=== PATIENT | male | born 1965 | race Caucasian/White ===

== ENCOUNTER 2016-11-18 12:34 | Emergency (ER) | payer OTHER ==
[~2016-11-18] VITALS: Ht 175.3 cm; Wt 74.8 kg
[~2016-11-18 12:34] MED LIST: IBUPROFEN600 MG PO
[2016-11-18] MEDS ORDERED: ALEVE220 MG PO (12:42)
== END 2016-11-18 12:47 | disposition home or self-care (01) ==
LOC: ED 12:34
DX: Z00.8 Encounter for other general examination (principal)

== ENCOUNTER 2019-03-15 12:27 | Emergency (ER) | payer BC ==
[~2019-03-15] VITALS: Ht 175.3 cm; Wt 86.2 kg
[~2019-03-15 12:27] MED LIST changes: +ALEVE220 MG PO
--- OUTSIDE RECORDS SUMMARY | 2019-03-15 12:30 | XMS ---
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 Jenny has no Care Guidelines for this patient. Jana VISIT COUNT (12 MO.) 1 [facility] TOTAL 1 NOTE: Visits indicate total known visits. ED/C VISIT TRACKING (12 MO.) 03/15/2019 12:27 [facility] [place] TYPE: Emergency COMPLAINT: - DIZZYNESS, HEADACHE INPATIENT VISIT TRACKING (12 MO.) No inpatient visits to display in this time frame [email or web address]
[2019-03-15] MEDS ORDERED: LEVOCETIRIZINE D5 MG PO (14:40)
[2019-03-15] MEDS ORDERED: BUDESONIDE8.43 ML (14:40)
[2019-03-15] MEDS ORDERED: HYDROXYZINE PAM25 MG PO (14:40)
[2019-03-15] MEDS ORDERED: MECLIZINE HCL25 MG PO (16:01)
== END 2019-03-15 16:13 | disposition home or self-care (01) ==
LOC: ED 12:27
DX: R42 Dizziness and giddiness (principal); H91.91 Unspecified hearing loss, right ear; F17.200 Nicotine dependence, unspecified, uncomplicated; Z79.899 Other long term (current) drug therapy
CPT/HCPCS: 70450; 80053; 85025; 96374; 96376; 99284-25; J2405; J7030

== ENCOUNTER 2019-05-20 13:03 | Day surgery (SDC) | payer OTHER ==
[~2019-05-20] VITALS: Ht 175.3 cm; Wt 86.2 kg
[~2019-05-20 13:03] MED LIST changes: +BUDESONIDE8.43 ML; +HYDROXYZINE PAM25 MG PO; +LEVOCETIRIZINE D5 MG PO; +MECLIZINE HCL25 MG PO
--- NOTE | 2019-05-20 15:18 | NUR ---
05/20/19 1518 Whitney Whitney 1511 PATIENT ARRIVES TO PACU ASLEEP, AWAKENS WITH VERBAL STIMULI. RESP EVEN AND UNLABORED, NC AT 2 LITERS. 1515 PATIENT SLEEPING. AT BEDSIDE. PATIENT AWAKENS WITH VERBAL STIMULI. NC OFF. RESP EVEN AND UNLABORED, SNORING WHEN ASLEEP.
--- NOTE | 2019-05-21 18:30 | OR ---
[facility] [address], [place] [address] Signed DATE OF OPERATION: 05/20/2019 SURGEON: Jerzy Hackett MD PREOPERATIVE DIAGNOSIS: Episodic bright red rectal bleeding (painless). POSTOPERATIVE DIAGNOSIS: Polyps x3 (small). PROCEDURE: Total colonoscopy to cecum with cold snare polypectomy x1 and cold morcellation polypectomy x2. ANESTHESIA: Intravenous sedation, fentanyl 100 mcg, Versed 5 mg. INDICATION: This 53-year-old white man is a patient of MARIA G Cortes, and has had episodes of bright red rectal bleeding without associated pain. He is not known to have hemorrhoids. He has no family history of colon cancer. He is admitted at this time to undergo colonoscopy. He understands the risks of bleeding, infection, and perforation. FINDINGS: The prep was excellent. Complete colonoscopy was undertaken to the cecum without question. He had a small sessile polyp in the mid ascending colon, which was excised with cold morcellation technique and two other small polyps at the rectosigmoid, one excised with cold snare technique, the other with cold morcellation technique. There was no sign of colitis, diverticulosis or internal hemorrhoids so far as could be told. DESCRIPTION OF PROCEDURE: The patient was brought to the endoscopy suite and placed in lateral decubitus position, given intravenous sedation to the point of slurred speech and nystagmus. Digital rectal examination was normal. An Olympus video colonoscope was passed in the rectum and manipulated throughout the colon ultimately intubating the cecum itself. The scope was carefully withdrawn. In the mid ascending colon, was a small sessile polyp. It is unclear if this was adenomatous, but its mucosal surface appeared to be so. This was excised with a cold morcellation polypectomy device. The scope was further withdrawn and there were no Electronically Signed By: JERZY HACKETT MD 05/21/19 1830 PATIENT NAME: LISANDRA BROWN OPERATIVE REPORT DATE OF : 67 REPORT #: [id number] PHYSICIAN: JERZY HACKETT MD PCP: NAHUN RIDDLE REPORT IS CONFIDENTIAL AND NOT TO BE RELEASED WITHOUT AUTHORIZATION [facility] [address], [place] [address] Signed other findings until the rectosigmoid where two small polyps not far from each other were noted. One was excised with cold snare technique, the other with cold morcellation technique. They were retrieved and passed for Pathology. The scope was further withdrawn. Retroflexed view in the rectum showed no sign of hemorrhoids or other issue. Scope was removed. The patient was taken to recovery room in good condition. CONCLUDING DIAGNOSIS: Polyps x3. No clear reason for bleeding. I would recommend high-fiber diet. Recurrent bleeding could be re-evaluated in consideration of possible hemorrhoidal disease. MD JUAN ANTONIO Nazario/BALWINDER /[id number] cc: MARIA G Cortes Copies: ~ Electronically Signed By: JERZY HACKETT MD 05/21/19 1830 PATIENT NAME: LISANDRA BROWN AVRIL OPERATIVE REPORT DATE OF : 67 REPORT #: [id number] PHYSICIAN: JERZY HACKETT MD PCP: NAHUN RIDDLE REPORT IS CONFIDENTIAL AND NOT TO BE RELEASED WITHOUT AUTHORIZATION
--- NOTE | 2019-05-24 17:41 | PATH ---
[facility] [address], [place] [address] Signed SPECIMEN(S): A ASCENDING POLYP SPECIMEN(S): B RECTOSIGMOID POLYP SPECIMEN(S): C RECTOSIGMOID POLYP SPECIMEN SOURCE: A. ASCENDING POLYP B. RECTOSIGMOID POLYP C. RECTOSIGMOID POLYP CLINICAL HISTORY: Rectal bleeding. Post op: Polyps x 3. MICROSCOPIC DESCRIPTION: Histologic sections of all submitted blocks are examined by light microscopy. These findings, together with the gross examination, support the pathologic diagnosis. FINAL PATHOLOGIC DIAGNOSIS: A. Mucosa, ascending colon, biopsy: - No microscopic pathologic diagnosis (Polyp, clinical. See comment). B. Mucosa, rectosigmoid colon, biopsy: - Hyperplastic polyp. C. Mucosa, rectosigmoid colon, biopsy: - Hyperplastic polyp. COMMENT: A Multiple levels over three slides are examined. No hyperplastic or adenomatous change is seen. LJA:cml:C2NR GROSS DESCRIPTION: Three specimens are received in three containers, labeled "TV." A. The specimen, labeled "TV, #1" and "ascending/right polypectomy" on the requisition, is received in formalin and consists of a 0.3 cm, soft moscoso tissue fragment that is submitted in toto in cassette (A1). B. The specimen, labeled "TV, #2" and "sigmoid, rectum, polypectomy on the requisition", is received in formalin and consists of a 0.4 x 0.3 x 0.3 cm, soft moscoso, smooth polypoid portion of tissue that is submitted in toto in cassette (B1). C. The specimen, labeled "TV, #3" and "sigmoid, rectum, polyp #2" on the requisition, is received in formalin and consists of a 0.3 x 0.2 x 0.2 cm, soft PATIENT NAME: LISANDRA BROWN PATHOLOGY DATE OF : 67 REPORT #: [id number] PHYSICIAN: KEVIN PATHOLOGY PCP: NAHUN RIDDLE REPORT IS CONFIDENTIAL AND NOT TO BE RELEASED WITHOUT AUTHORIZATION [facility] [address], [place] [address] Signed moscoso, smooth polypoid portion of tissue that is submitted in toto in cassette (C1). SS (under the direct supervision of a pathologist) The Gross Description was prepared using a voice recognition system. The report was reviewed for accuracy; however, sound-alike word errors, addition and/or deletions may occur. If there is any question about this report, please contact Client Services. PERFORMING LABORATORY: The technical component was performed by [facility], [address] [place] [address] (Stonework Tracer: Ronit Moctezuma MD; CLIA# [id number]). [facility] [address] [address] (CLIA# [id number]). Diagnostician: Solis Kathleen MD Pathologist Electronically Signed 05/24/2019 Copies: ~ PATIENT NAME: LISANDRA BROWN PATHOLOGY DATE OF : 67 REPORT #: [id number] PHYSICIAN: KEVIN PANTOJA PCP: NAHUN RIDDLE REPORT IS CONFIDENTIAL AND NOT TO BE RELEASED WITHOUT AUTHORIZATION
== END 2019-05-20 15:50 | disposition home or self-care (01) ==
LOC: OPS 13:03 → DS 14:00 → OPS 14:00 → DS 14:30 → OPS 15:50
PROVIDERS: Surgery
PROC: 0DBN8ZZ Excision of Sigmoid Colon, Via Natural or Artificial Opening Endoscopic (ICD-10-PCS; 2019-05-20)
PROC: 0DBK8ZZ Excision of Ascending Colon, Via Natural or Artificial Opening Endoscopic (ICD-10-PCS; principal; 2019-05-20 14:00)
DX: K63.5 Polyp of colon (principal); F17.210 Nicotine dependence, cigarettes, uncomplicated; I10 Essential (primary) hypertension; G47.30 Sleep apnea, unspecified; Z79.899 Other long term (current) drug therapy
CPT/HCPCS: 99153; G0500; J2250; J3010; J7121

== ENCOUNTER 2019-05-28 19:34 | Emergency (ER) | payer OTHER ==
[~2019-05-28] VITALS: Ht 175.3 cm; Wt 88.5 kg
[2019-05-28] MEDS ORDERED: TYLENOL WITH C1 EACH PO (20:25)
== END 2019-05-28 20:30 | disposition home or self-care (01) ==
LOC: ED 19:34
DX: S92.524A Nondisplaced fracture of middle phalanx of right lesser toe(s), initial encounter for closed fracture (principal); S92.534A Nondisplaced fracture of distal phalanx of right lesser toe(s), initial encounter for closed fracture; W22.8XXA Striking against or struck by other objects, initial encounter
CPT/HCPCS: 73660; 99283-25

== ENCOUNTER 2019-06-23 22:34 | Emergency (ER) | payer OTHER ==
[~2019-06-23] VITALS: Ht 175.3 cm; Wt 86.2 kg
[~2019-06-23 22:34] MED LIST changes: +TYLENOL WITH C1 EACH PO
--- OUTSIDE RECORDS SUMMARY | 2019-06-23 22:38 | XMS ---
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 Care History Medical/Surgical 03/16/2019 [facility] - PATIENT HAS AN APT WITH PCP NAHUN RIDDLE- 03/22/19 @ 3:00PM - Patient is currently established with [facility]. If patient is seen in the ED during business hours. Please contact CHWs at [facility]. Care Recommendation: If this patient has had 5 or more Emergency Department visits in the last 12 months.\T\nbsp; Patient will require education on the scope and purpose of the ED as an acute care provider not a Primary Care Provider and should not be utilized for chronic conditions.\T\nbsp; These are guidelines and the provider should exercise clinical judgment when providing care. E.D. VISIT COUNT (12 MO.) 3 [facility] TOTAL 3 NOTE: Visits indicate total known visits. ED/UCC VISIT TRACKING (12 MO.) 06/23/2019 22:35 [facility] [place] TYPE: Emergency COMPLAINT: - LOWER RIGHT SIDE PAIN 05/28/2019 19:36 [facility] [place] TYPE: Emergency COMPLAINT: - POSS BROKEN TOE DIAGNOSES: - Striking against or struck by other objects, init encntr - Nondisp fx of middle phalanx of right lesser toe(s), init - Nondisp fx of distal phalanx of right lesser toe(s), init 03/15/2019 12:27 [facility] [place] TYPE: Emergency COMPLAINT: - DIZZYNESS, HEADACHE DIAGNOSES: - Unspecified hearing loss, right ear - Dizziness and giddiness - Nicotine dependence, unspecified, uncomplicated - Other superintendent nonselling (current) drug therapy INPATIENT VISIT TRACKING (12 MO.) No inpatient visits to display in this time frame [email or web address]
[2019-06-23] MEDS ORDERED: HYDROCHLOROTHIA25 MG PO (23:17)
== END 2019-06-24 02:20 | disposition home or self-care (01) ==
LOC: ED 22:34
DX: R10.31 Right lower quadrant pain (principal); F17.200 Nicotine dependence, unspecified, uncomplicated; Z79.899 Other long term (current) drug therapy
CPT/HCPCS: 74177; 80053; 81001; 85025; 96361; 99284-25; J1170; J2405; J7030; Q9967

== ENCOUNTER 2019-06-29 09:10 | Emergency (ER) | payer OTHER ==
[~2019-06-29] VITALS: Ht 175.3 cm; Wt 86.2 kg
[~2019-06-29 09:10] MED LIST changes: +HYDROCHLOROTHIA25 MG PO
--- OUTSIDE RECORDS SUMMARY | 2019-06-29 09:14 | XMS ---
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 Care History Medical/Surgical 03/16/2019 [facility] - PATIENT HAS AN APT WITH PCP NAHUN RIDDLE- 03/22/19 @ 3:00PM - Patient is currently established with [facility]. If patient is seen in the ED during business hours. Please contact CHWs at [facility]. Care Recommendation: If this patient has had [...] providing care. E.D. VISIT COUNT (12 MO.) 4 [facility] TOTAL 4 NOTE: Visits indicate total known visits. ED/UCC VISIT TRACKING (12 MO.) 06/29/2019 09:11 [facility] [place] TYPE: Emergency COMPLAINT: - HOT/COLD CHILLS, ACHES, TOOTH PAIN 06/23/2019 22:35 [facility] [place] TYPE: Emergency COMPLAINT: - LOWER RIGHT SIDE PAIN DIAGNOSES: - Right lower quadrant pain - Other buttermaker continuous churn (current) drug therapy - Nicotine dependence, unspecified, uncomplicated 05/28/2019 19:36 [facility] [place] TYPE: Emergency [...] - Nicotine dependence, unspecified, uncomplicated - Other buttermaker continuous churn (current) drug therapy INPATIENT VISIT TRACKING (12 MO.) No inpatient visits to display in this time frame [email or web address]
[2019-06-29] MEDS ORDERED: IBUPROFEN800 MG PO (09:22)
== END 2019-06-29 09:25 | disposition home or self-care (01) ==
LOC: ED 09:10
DX: K08.89 Other specified disorders of teeth and supporting structures (principal)

== ENCOUNTER 2019-07-12 09:43 | Emergency (ER) | payer OTHER ==
[~2019-07-12] VITALS: Ht 175.3 cm; Wt 86.2 kg
[~2019-07-12 09:43] MED LIST changes: +IBUPROFEN800 MG PO
--- OUTSIDE RECORDS SUMMARY | 2019-07-12 09:46 | XMS ---
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 Care History Medical/Surgical 03/16/2019 [facility] - PATIENT HAS AN APT WITH PCP NAHUN RIDDLE- 03/22/19 @ 3:00PM - Patient is currently established with [facility]. If patient is seen in the ED during business hours. Please contact CHWs at [facility]. Care Recommendation: If this patient has [...] providing care. E.D. VISIT COUNT (12 [address] [facility] TOTAL 5 NOTE: Visits indicate total known visits. ED/UCC VISIT TRACKING (12 MO.) 07/12/2019 09:44 [facility] [place] TYPE: Emergency COMPLAINT: - SOB, CHILLS 06/29/2019 09:11 [facility] [place] TYPE: Emergency COMPLAINT: - HOT/COLD CHILLS, ACHES, TOOTH PAIN DIAGNOSES: - Other specified disorders of teeth and supporting structures 06/23/2019 22:35 [facility] [place] TYPE: Emergency COMPLAINT: - LOWER RIGHT SIDE PAIN DIAGNOSES: - Right lower quadrant pain - Other fci (current) drug therapy - Nicotine dependence, unspecified, uncomplicated 05/28/2019 19:36 [facility] [place] TYPE: Emergency COMPLAINT: - POSS BROKEN TOE DIAGNOSES: - Striking against or struck by other objects, initial encounte - Nondisplaced fracture of middle phalanx of right lesser toe(s - Nondisplaced fracture of distal phalanx of right lesser toe(s 03/15/2019 12:27 [facility] [place] TYPE: Emergency COMPLAINT: - DIZZYNESS, HEADACHE DIAGNOSES: - Unspecified hearing loss, right ear - Dizziness and giddiness - Nicotine dependence, unspecified, uncomplicated - Other superintendent marine oil terminal (current) 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
[2019-07-12] MEDS ORDERED: ONDANSETRON ODT8 MG PO (10:21)
--- NOTE | 2019-07-12 17:09 | EKG ---
[facility] [address] [facility] [place], [place] [address] Signed Normal sinus rhythm Normal ECG When compared with ECG of 08-DEC-2016 12:30, Questionable change in QRS axis Confirmed by CAROL NERI MD ([id number]) on 07/12/2019 5:09:31 PM Electronically Signed By: CAROL NERI MD 07/12/19 1709 PATIENT NAME: STEPHANIELISANDRA AVRIL Electrocardiogram DATE OF : 67 PHYSICIAN: CAROL NERI MD REPORT #: [id number] REPORT IS CONFIDENTIAL AND NOT TO BE RELEASED WITHOUT AUTHORIZATION
== END 2019-07-12 10:32 | disposition home or self-care (01) ==
LOC: ED 09:43
DX: B34.9 Viral infection, unspecified (principal); F17.200 Nicotine dependence, unspecified, uncomplicated
CPT/HCPCS: 93005; 93010; 99284-25

== ENCOUNTER 2019-07-19 11:21 | Emergency (ER) | payer OTHER ==
[~2019-07-19] VITALS: Ht 175.3 cm; Wt 84.0 kg
[~2019-07-19 11:21] MED LIST changes: +ONDANSETRON ODT8 MG PO
--- OUTSIDE RECORDS SUMMARY | 2019-07-19 11:24 | XMS ---
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 Care History Medical/Surgical 07/13/2019 [facility] Patient advised to stay home until feeling well plus 72 hours as he cannot be confirmed to have COVID 19.\T\nbsp; No follow up appointment scheduled at this time 03/16/2019 [facility] - PATIENT HAS AN APT WITH PCP NAHUN RIDDLE- 03/22/19 @ 3:00PM - Patient is currently established with [facility]. If patient is seen in the ED during business hours. Please contact CHWs at [facility]. Care Recommendation: If this patient has had [...] providing care. E.D. VISIT COUNT (12 MO.) 6 [facility] TOTAL 6 NOTE: Visits indicate total known visits. ED/UCC VISIT TRACKING (12 MO.) 07/19/2019 11:22 [facility] [place] TYPE: Emergency COMPLAINT: - VOMITING, SOB 07/12/2019 09:44 [facility] [place] TYPE: Emergency COMPLAINT: - SOB, CHILLS DIAGNOSES: - Viral infection, unspecified - Cough - Nicotine dependence, unspecified, uncomplicated 06/29/2019 09:11 [facility] [place] TYPE: Emergency COMPLAINT: - HOT/COLD CHILLS, ACHES, TOOTH PAIN DIAGNOSES: - Other specified disorders of teeth and supporting structures 06/23/2019 22:35 [facility] [place] TYPE: Emergency COMPLAINT: - LOWER RIGHT SIDE PAIN DIAGNOSES: - Right lower quadrant pain - Other exterminator termite (current) drug therapy - Nicotine dependence, unspecified, uncomplicated 05/28/2019 19:36 [facility] [place] TYPE: Emergency COMPLAINT: - POSS BROKEN TOE DIAGNOSES: - Striking against or struck by other objects, initial encounte - Nondisplaced fracture of middle phalanx of right lesser toe(s - Nondisplaced fracture of distal phalanx of right lesser toe(s 03/15/2019 12:[address] [facility] [place] TYPE: Emergency COMPLAINT: - DIZZYNESS, HEADACHE DIAGNOSES: - Unspecified hearing loss, right ear - Dizziness and giddiness - Nicotine dependence, unspecified, uncomplicated - Other exterminator termite (current) drug therapy INPATIENT VISIT TRACKING (12 MO.) No inpatient visits to display in this time frame [email or web address]
== END 2019-07-19 14:07 | disposition home or self-care (01) ==
LOC: ED 11:21
DX: K21.0 Gastro-esophageal reflux disease with esophagitis (principal); F17.200 Nicotine dependence, unspecified, uncomplicated
CPT/HCPCS: 76705; 80053; 81001; 83690; 85025; 96374; 96375; 99284-25; J1170; J2405; J7121

== ENCOUNTER 2019-09-30 11:59 | Observation (INO) | payer OTHER ==
[~2019-09-30] VITALS: Ht 175.3 cm; Wt 81.2 kg
--- OUTSIDE RECORDS SUMMARY | 2019-09-30 12:04 | XMS ---
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 Please contact [employer] for any mental health concerns: [place] [phone] [place] [phone] Crisis Line [phone] Care History Medical/Surgical 07/20/2019 [facility] Patient returned to ED 1 week later and again advised to stay home as provider cannot verify if patient has COVID19.\T\nbsp; PCP appointment on 07/26/2019 with Mercedes Kenyon.\T\nbsp; 07/13/2019 [facility] Patient advised to stay home until feeling well plus 72 hours as he cannot be confirmed to have COVID 19.\T\nbsp; No follow up appointment scheduled at this time 03/16/2019 [facility] - PATIENT HAS AN APT WITH PCP MERCEDES KENYON- 03/22/19 @ 3:00PM - Patient is currently established with [facility]. If patient is seen in the ED during business hours. Please contact CHWs at [facility]. Care Recommendation: If this patient has [...] providing care. E.D. VISIT COUNT (12 MO.) 1 [place] [address] D[facility] TOTAL 8 NOTE: Visits indicate total known visits. ED/UCC VISIT TRACKING (12 MO.) 09/30/2019 12:00 [facility] [place] TYPE: Emergency COMPLAINT: - ABDOMINAL PAIN, BLOOD IN STOOL, VOMITING 08/21/2019 14:42 [facility] [place] TYPE: Emergency DIAGNOSES: - Other specified bacterial intestinal infections - ABDOMINAL PAIN 07/19/2019 11:22 [facility] [place] TYPE: Emergency COMPLAINT: - VOMITING, SOB DIAGNOSES: - Gastro-esophageal reflux disease with esophagitis - Nicotine dependence, unspecified, uncomplicated - Unspecified abdominal pain 07/12/2019 09:44 [facility] [place] TYPE: Emergency [...] - Right lower quadrant pain - Other residential (current) drug therapy - Nicotine dependence, unspecified, [...] - Nicotine dependence, unspecified, uncomplicated - Other residential (current) drug therapy INPATIENT VISIT TRACKING (12 MO.) No inpatient visits to display in this time frame [email or web address]
[2019-09-30] MEDS ORDERED: OMEPRAZOLE40 MG PO (12:15)
[2019-09-30] MEDS ORDERED: TETRACYCLINE H250 MG PO (12:16)
[2019-09-30] MEDS ORDERED: LIDOCAINE HCL100 ML PO (12:16)
--- NOTE | 2019-09-30 15:15 | NUR ---
PATIENT ADMITTED TO MED SURG. ABDOMINAL PAIN OF 6/10 AND DESCRIBED "CRAMPING PAIN."
--- NOTE | 2019-09-30 15:42 | NUR ---
PT ADMITTED AND BY ANOTHER RN AND ALL ASSESSMENT COMPLETED. IV FLUIDS STARTED LEFT HAND SITE FLUSHES WITH EASE. PT ALLOWED TO HAVE CLEAR LIQUIDS AT THIS TIME.
--- NOTE | 2019-09-30 17:02 | NUR ---
PT TOLERATED CLEAR LIQUIDS SO FAR THIS EVENING. AWAKE AND WATCHING TV NO C/O'S AT THIS TIME.
--- NOTE | 2019-09-30 18:20 | NUR ---
PT ATE ALL OF HIS CLEAR LIQUID TRAY THIS EVENING NO NAUSEA OR ABD PAIN WITH ORAL INTAKE. PT IN BED WATCHING TV.
--- NOTE | 2019-09-30 19:51 | NUR ---
PER PT REQUEST I GAVE HIM MORE ICE WATER AND EMPTIED HIS URINAL. PT NEEDS NOTHING ELSE AT THIS TIME.
--- NOTE | 2019-09-30 19:55 | NUR ---
DR SHANNON IN ROOM
--- NOTE | 2019-09-30 20:15 | NUR ---
CPNSENT FOR EGD SIGNED, PT AWAKE, IN BED, WATCHING TV, IVF INFUSING W/O PROBLEMS. ON ROOM AIR. HAS R ANKLE MONITOR. CALL LIGHT ANF FLUIDS ATBEDSIDE, AWARE OF NPO AFTER MIDNIGHT, VOIDING QS DARK YELLOW URINE
--- NOTE | 2019-09-30 20:30 | NUR ---
PER DR MILTON NO NEED TO REPORT LOW URINE OUTPUT UNLESS PT HAS SYMPTOMS/LOW BP. PRIMARY RN NOTIFIED.
--- NOTE | 2019-09-30 22:58 | NUR ---
RESTING, EYES CLOSED, NO RESP DISTRESS, IVF INFUSING W/O PROBLEMS. USES URINAL. CALL LIHGT AND FLUIDSA AT BEDSIDE, AWARE OF NPO AT MIDNIGHT FOR AM EGD
--- NOTE | 2019-09-30 23:37 | NUR ---
RESTING, NO DISTRESS, ON ROOM AIR, NO RESP DISTRESS, CALL LIGHT AT BEDSIDE, WILL BE NPO AFTER MIDNIHGT FOR AM PROCEDURES
--- NOTE | 2019-10-01 03:06 | NUR ---
AWAKES EASILY, NO C/O ABD PAIN, NO BM, NO RESCTAL BLEEDING THI SHIFT. ON ROOM AIR. IVF INFUSING W/O PROBLEMS. NPO SINCE MIDNIGHT FOR AM PROCEDURE. CALL LIGHT AND MOUTH SWABS AT BEDSIDE
--- NOTE | 2019-10-01 05:37 | NUR ---
Pt has been NPO since midnight for AM EGD. pt aware, does own mouth care. Independent inroom, no c/o abd pain this shift, no bloody stool or emesis. Voising QS using urinal, IVf infusing w/o problems. Using call light appropriately. Surgery permit signed.
--- NOTE | 2019-10-01 06:24 | CONS ---
[facility] [address] [place], [place] [address] Signed DATE OF CONSULTATION: 09/30/2019 CHIEF COMPLAINT: Epigastric abdominal pain. HISTORY OF PRESENT ILLNESS: Lucretia is a 53-year-old gentleman, who has been having epigastric abdominal pain for over 6 months. He seems to have nausea and vomiting and some diarrhea as well. He said the pain can come on as late as an hour after he eats or even the next day. He has no immediate pain and it does not relieve the pain. He has been following along as an outpatient with Dr. Hackett. He had a negative ultrasound in July 2019 as well as a negative ultrasound just [address] scan in June of 2019, showed small bilateral inguinal hernias, but no other issues. He had a colonoscopy in May of 2017, with a tiny hyperplastic polyp removed, but no other issues. He has been in the emergency room several times. He came to the emergency room today because of the pain. There was some concern that maybe his stool was a little dark and possibly even melenic. Consequently, he was been admitted to the Internal Medicine Service. I was asked to see him as a local general surgeon on-call. Dr. Hackett unfortunately is headed out of town. In the meantime, he seems to be doing fine. PAST MEDICAL HISTORY: Helicobacter pylori x2, hyperplastic colonic polyps in May of 2019. PAST SURGICAL HISTORY: Colonoscopy in May of 2019, Dr. Hackett. SOCIAL HISTORY: He likes to smoke. He does not drink. He is , but has no children with his current . He has 8 children in total. 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 He is currently unemployed because of coronavirus. Actually Chantale is his nurse practitioner. He prefers the [facility]. FAMILY HISTORY: Everyone seems to be healthy. REVIEW OF SYSTEMS: He had 10 systems reviewed and he is pretty healthy except he is missing his front upper teeth. ALLERGIES: None. MEDICATIONS: Electronically Signed By: DARA SHANNON MD 10/01/19 0624 PATIENT NAME: KAEL BROWN CONSULTATION DATE OF : 67 REPORT #: [id number] PHYSICIAN: DARA SHANNON MD PCP: NAHUN RIDDLE REPORT IS CONFIDENTIAL AND NOT TO BE RELEASED WITHOUT AUTHORIZATION [facility] [address] [place], [place] [address] Signed 1. Zofran. 2. Prilosec. 3. Tetracycline. 4. Viscous lidocaine. PHYSICAL EXAMINATION: VITAL SIGNS: Blood pressure 119/80, heart rate 55, respiratory rate 18, temperature is 98.0. He is 98% on room air. He is 5 feet 9 inches, 81 kg. GENERAL: Kael is a 53-year-old gentleman, lying supine semi-recumbent in hospital bed, watching TV. He does not appear systemically ill or toxic. SKIN: Has good color. LUNGS: Generally clear to auscultation bilaterally. HEART: Regular rate and rhythm without murmur. ABDOMEN: Soft, flat. He seems to be tender in the epigastric area just below the xiphoid process. LABORATORY DATA: His white blood count 5.8, hemoglobin 16, neutrophils 63. BUN 14, creatinine 1.0, glucose 88. Liver function tests are negative. Albumin is 4.4 and his lipase is negative. RADIOGRAPHIC STUDIES: An ultrasound in July of 2019 and 2 days ago both were negative. A CT scan in June 2019 was negative except for small bilateral inguinal hernias. ASSESSMENT AND PLAN: Kael is a 53-year-old gentleman, who has unexplained epigastric abdominal pain. There is a question whether or not he has dark stool. It seems unlikely with a normal hemoglobin and a B1, it is normal. His colonoscopy earlier this year was fairly uneventful. His pain comes on at least an hour after he eats sometimes later. Suggest that even now his gallbladder may still be the culprit. Nevertheless, he is certainly a candidate for upper endoscopy. I explained him upper endoscopy in detail along with the risks and benefits. We also reviewed the need for IV conscious sedation. He has expressed understanding and would like to proceed. If that is negative, he might consider a HIDA scan with ejection fraction of the gallbladder. He has expressed understanding would like to proceed. We will add him on to our a.m. cases. Dara Shannon MD ALB/MODL Electronically Signed By: DARA SHANNON MD 10/01/19 0624 PATIENT NAME: KAEL BROWN CONSULTATION DATE OF : 67 REPORT #: [id number] PHYSICIAN: DARA SHANNON MD PCP: NAHUN RIDDLE REPORT IS CONFIDENTIAL AND NOT TO BE RELEASED WITHOUT AUTHORIZATION [address] [address] Signed /[id number] cc: MD Corona aFbian MD Copies: JERZY HACKETT MD, BRIAN DO ~ Electronically Signed By: DARA SHANNON MD 10/01/19 0624 PATIENT NAME: KAEL BROWN CONSULTATION DATE OF : 67 REPORT #: [id number] PHYSICIAN: DARA SHANNON MD PCP: NAHUN RIDDLE REPORT IS CONFIDENTIAL AND NOT TO BE RELEASED WITHOUT AUTHORIZATION
--- NOTE | 2019-10-01 07:15 | NUR ---
received report from derrell ruiz. pt awake and laying in bed with no complaints at this time
--- NOTE | 2019-10-01 07:44 | NUR ---
pt off unit to egd at this time
--- NOTE | 2019-10-01 08:52 | NUR ---
10/01/19 0852 Whitney Whitney 0868 PATIENT ARRIVES TO PACU UNRESPONSIVE TO PAIN. NASAL TRUMPET IN RIGHT NARE. NC AT 6 LITERS. RESP EVEN AND UNLABORED, SNORING AT TIMES.
--- NOTE | 2019-10-01 09:46 | NUR ---
MED REC COMPLETE
--- NOTE | 2019-10-01 10:04 | NUR ---
PT REPORTING A CRAMPING PAIN, PROVIDED PT WITH BENTYL FOR PAIN
--- NOTE | 2019-10-01 10:05 | NUR ---
PT UP TO THE BATHROOM, STEADY ON FEET. PT TO CALL IN HIS FOOD ORDER ONCE HE IS DONE IN THE RESTROOM
--- NOTE | 2019-10-01 11:16 | NUR ---
PROVIDED PT WITH SOME SNACKS, PT HAS ORDERED LUNCH AT THIS TIME
[2019-10-01] MEDS ORDERED: OMEPRAZOLE40 MG PO (11:23)
--- NOTE | 2019-10-01 12:05 | OR ---
[facility] [address] [place], [place] [address] Signed DATE OF OPERATION: 10/01/2019 SURGEON: Dara Shannon MD PREOPERATIVE DIAGNOSES: 1. Epigastric abdominal pain. 2. History of Helicobacter pylori treated x2. 3. Nausea, vomiting, diarrhea. POSTOPERATIVE DIAGNOSES: 1. Moderate diffuse gastritis. 2. Small hiatal hernia. PROCEDURES: EGD with CLOtest and biopsies of the duodenum, pyloric bulb, antrum, GE junction, and midesophagus. ESTIMATED BLOOD LOSS: None. INDICATIONS: Kael is a 53-year-old gentleman, who has had epigastric abdominal pain, nausea, vomiting, diarrhea for several months. He has had negative abdominal ultrasound twice. He has had a CT scan of abdomen and pelvis, which was unremarkable. He has been evaluated by his primary care provider in the emergency room several times as well as his surgeon, Dr. Sarabjit Townsend. His colonoscopy in the May of this year showed a few hyperplastic polyps. He did have a small adrenal nodule. Consequently, he has had quite a bit of blood work which has all come back negative except for his Helicobacter pylori was positive. He said he was treated twice with antibiotics and Prilosec. It is not clear how compliant he has been. He once again came back to the emergency room with increasing epigastric abdominal pain. His hemoglobin was fine at 16, but there was some concern whether or not he might have some mild melena. Consequently, he had been admitted to our internal medicine service. I had been asked to see him as a general surgeon on-call. He has done quite well yesterday and last night here in the hospital. I had met with him yesterday to review all his findings and review his extensive records. I explained to Kael he certainly is a candidate for upper endoscopy. We reviewed upper endoscopy along with its risks including, but not limited to gas bloating, crampy abdominal pain, bleeding, perforation requiring surgery, and missed diagnosis. He also understands the need for the IV conscious sedation. Given his history of methamphetamine abuse and daily marijuana, we asked an anesthesia provider to Electronically Signed By: DARA SHANNON MD 10/01/19 1205 PATIENT NAME: KAEL BROWN OPERATIVE REPORT DATE OF : 67 REPORT #: [id number] PHYSICIAN: DARA SHANNON MD PCP: MERCEDES RIDDLE REPORT IS CONFIDENTIAL AND NOT TO BE RELEASED WITHOUT AUTHORIZATION [facility] [address] [place], [place] [address] Signed help with increased monitoring sedation with propofol that actually proved to be a das decision. He actually took quite a bit of medication. He had expressed understanding and wished to proceed. DESCRIPTION OF PROCEDURE: Kael was taken into our endoscopy suite and placed in the supine semi-recumbent position. He was given IV sedation per our nurse alarm installation technician. A bite block was utilized for the case. The adult gastroscope was introduced and advanced out into the third portion of the duodenum under direct visualization of camera without difficulty. The duodenum appeared unremarkable. We took a biopsy from the duodenum due to the history of diarrhea. The pyloric channel was unremarkable. No inflammatory changes and no ulcers. We took a biopsy of the pyloric bulb for pathologic review. However, the stomach showed moderate erythematous changes throughout consistent with moderate diffuse gastritis. We went and took a biopsy of the antrum for CLOtest as well as pathologic review. There were no ulcerations in stomach. Upon retroflexion of scope, he does have a small hiatal hernia. The scope was withdrawn up through the area of GE junction, which was compliant without stricture. There was no evidence of any gastric or esophageal varices. He has mild disruption of the Z-line. Consequently, we took a biopsy from the Z-line for pathologic review. There was no Abrams's mucosa. The distal middle and upper esophagus were unremarkable. We went and took a biopsy of the midesophagus for pathologic review relative to his hiatal hernia. The scope had been withdrawn back into the oropharynx. No inflammatory changes on his vocal cords, epiglottis, or arytenoids. After this, the scope was completely removed. Kael tolerated the procedure quite well. RECOMMENDATIONS: Kael will be returned to his hospital room and internal medicine service. He will be resumed on a regular diet. He has been on Protonix twice a day. We will await the CLOtest to see if he needs re-treated for his H pylori. Dara Shannon MD ALB/MODL /[id number] cc: Patricia Hanna MD Electronically Signed By: DARA SHANNON MD 10/01/19 1205 PATIENT NAME: KAEL BROWN OPERATIVE REPORT DATE OF : 67 REPORT #: [id number] PHYSICIAN: DARA SHANNON MD PCP: MERCEDES RIDDLE REPORT IS CONFIDENTIAL AND NOT TO BE RELEASED WITHOUT AUTHORIZATION [facility] [address] [place], [place] [address] Signed MD Mercedes Mondragon NP Copies: PATRICIA HANNA MD, ANDREW L MD ~ Electronically Signed By: DARA SHANNON MD 10/01/19 1205 PATIENT NAME: KAEL BROWN OPERATIVE REPORT DATE OF : 67 REPORT #: [id number] PHYSICIAN: DARA SHANNON MD PCP: MERCEDES RIDDLE REPORT IS CONFIDENTIAL AND NOT TO BE RELEASED WITHOUT AUTHORIZATION
--- NOTE | 2019-10-04 16:37 | PATH ---
[facility] [address] [place], [place] [address] Signed SPECIMEN(S): A DUODENAL BIOPSY SPECIMEN(S): B DUODENAL BULB SPECIMEN(S): C ANTRUM/ANTRAL BIOPSY SPECIMEN(S): D GE JUNCTION SPECIMEN(S): E MIDDLE ESOPHAGUS SPECIMEN SOURCE: A. DUODENAL BIOPSY B. DUODENAL BULB C. ANTRUM/ANTRAL BIOPSY D. GE JUNCTION E. MIDDLE ESOPHAGUS CLINICAL HISTORY: Gastritis, hiatal hernia, melena. MICROSCOPIC DESCRIPTION: Histologic sections of all submitted blocks are examined by light microscopy. These findings, together with the gross examination, support the pathologic diagnosis. FINAL PATHOLOGIC DIAGNOSIS: A. Duodenum, biopsy: - Duodenal mucosa with no histopathologic abnormality. - Negative for increased intraepithelial lymphocytes. - Negative for dysplasia or malignancy. B. Duodenum, bulb, biopsy: - Duodenal mucosa with mild Yasmine gland hyperplasia. - Negative for Helicobacter organisms on HE stain. - Negative for dysplasia or malignancy. C. Stomach, antrum, biopsy: - Antral mucosa with chronic, inactive gastritis. - Negative for Helicobacter organisms on HE stain. - Negative for dysplasia or malignancy. D. Gastroesophageal junction, biopsy: - Squamocolumnar junctional mucosa with chronic inflammation and reactive epithelial changes, consistent with reflux esophagitis. - Negative for Helicobacter organisms on HE stain. - Negative for intestinal metaplasia, dysplasia, or malignancy. E. Esophagus, middle, biopsy: - Squamous mucosa with no histopathologic abnormality. - Negative for intestinal metaplasia, dysplasia, or malignancy. PATIENT NAME: STEPHANIELISANDRA AVRIL PATHOLOGY DATE OF : 67 REPORT #: [id number] PHYSICIAN: KEVIN PANTOJA PCP: NAHUN RIDDLE REPORT IS CONFIDENTIAL AND NOT TO BE RELEASED WITHOUT AUTHORIZATION [facility] [address] [place], [place] [address] Signed NAL:cml:C2NR GROSS DESCRIPTION: Five specimens are received in five containers, labeled "TV." A. The specimen, labeled "TV, 1," and designated on the requisition "duodenum," is received in formalin and consists of one moscoso soft tissue fragment that measures 0.4 cm in greatest dimension. The specimen is entirely submitted in cassette (A1). B. The specimen, labeled "TV, 2," and designated on the requisition "duodenal bulb," is received in formalin and consists of one moscoso soft tissue fragment that measures 0.3 cm in greatest dimension. The specimen is entirely submitted in cassette (B1). C. The specimen, labeled "TV, 3," and designated on the requisition "antrum/pylorus," is received in formalin and consists of one moscoso soft tissue fragment that measures 0.3 cm in greatest dimension. The specimen is entirely submitted in cassette (C1). D. The specimen, labeled "TV, 4," and designated on the requisition "GE junction," is received in formalin and consists of one moscoso soft tissue fragment that measures 0.3 cm in greatest dimension. The specimen is entirely submitted in cassette (D1). E. The specimen, labeled "TV, 5," and designated on the requisition "mid esophagus," is received in formalin and consists of one thin moscoso soft tissue fragments that measure 0.4 cm in greatest dimension. The specimen is entirely submitted in cassette (E1). AT (under the direct supervision of a pathologist) The Gross Description was prepared using a voice recognition system. The report was reviewed for accuracy; however, sound-alike word errors, addition and/or deletions may occur. If there is any question about this report, please contact Client Services. PERFORMING LABORATORY: The technical component was performed by [facility], [address] [place] [id number] (Quick Print Operator: Ronit Moctezuma MD; CLIA# [id number]). Professional interpretation was performed by [facility], [address] [place], [place] [address] (CLIA# [id number]). Diagnostician: Maru Quiroga MD Pathologist Electronically Signed 10/04/2019 PATIENT NAME: LISANDRA BROWN PATHOLOGY DATE OF : 67 REPORT #: [id number] PHYSICIAN: KEVIN PATHOLOGY PCP: NAHUN RIDDLE REPORT IS CONFIDENTIAL AND NOT TO BE RELEASED WITHOUT AUTHORIZATION [facility] [address] [facility] [place], [place] [address] Signed Copies: ~ PATIENT NAME: LISANDRA BROWN PATHOLOGY DATE OF : 67 REPORT #: [id number] PHYSICIAN: KEVIN PANTOJA PCP: NAHUN RIDDLE REPORT IS CONFIDENTIAL AND NOT TO BE RELEASED WITHOUT AUTHORIZATION
== END 2019-10-01 13:13 | disposition home or self-care (01) ==
LOC: ED 11:59 → MS 12:01
PROVIDERS: Colon & Rectal Surgery; ADMIT Student in an Organized Health Care Education/Training Program
PROC: 0DB78ZX Excision of Stomach, Pylorus, Via Natural or Artificial Opening Endoscopic, Diagnostic (ICD-10-PCS; 2019-10-01)
PROC: 0DB28ZX Excision of Middle Esophagus, Via Natural or Artificial Opening Endoscopic, Diagnostic (ICD-10-PCS; 2019-10-01)
PROC: 0DB48ZX Excision of Esophagogastric Junction, Via Natural or Artificial Opening Endoscopic, Diagnostic (ICD-10-PCS; 2019-10-01)
PROC: 0DB98ZX Excision of Duodenum, Via Natural or Artificial Opening Endoscopic, Diagnostic (ICD-10-PCS; principal; 2019-10-01 08:00)
DX: K29.50 Unspecified chronic gastritis without bleeding (principal); K20.9 Esophagitis, unspecified; K44.9 Diaphragmatic hernia without obstruction or gangrene; K21.9 Gastro-esophageal reflux disease without esophagitis; F17.210 Nicotine dependence, cigarettes, uncomplicated; Z79.899 Other long term (current) drug therapy; Z86.010 Personal history of colon polyps; Z86.19 Personal history of other infectious and parasitic diseases
CPT/HCPCS: 36415; 80048; 80053; 83690; 83735; 85025; 86677; 86850; 86900; 86901; 96361; 96374; 96375; 99285-25; C9113; C9803; G0378; J1170; J2405; J2704; J7030; J7121; U0002